=== PATIENT | male | born 2000 | race Caucasian/White ===

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

== ENCOUNTER 2021-08-04 23:21 | Emergency (ER) | payer OTHER ==
[2021-08-05] MEDS ORDERED: traMADol 50 MG TAB PO ONE (04:08)
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
[2021-08-05 06:20] VITALS: BP 126/73
== END 2021-08-05 06:53 | disposition home or self-care (01) ==
LOC: ED 23:21
DX: M54.2 Cervicalgia (principal); M54.50 Low back pain, unspecified; V49.9XXA Car occupant (driver) (passenger) injured in unspecified traffic accident, initial encounter; Y93.89 Activity, other specified; Y92.89 Other specified places as the place of occurrence of the external cause; Y99.8 Other external cause status
CPT/HCPCS: 72040; 72100; 99283

== ENCOUNTER 2021-08-25 08:06 | Emergency (ER) | payer SELFPAY ==
[2021-08-25 08:20] VITALS: BP 117/45
[2021-08-25 10:15] LABS: Basophils % (Auto) 0.4 % (0.0-1.8); Eosinophils # (Auto) 0.1 K/mm3 (0.0-0.4); Eosinophils % (Auto) 1.2 % (0.0-4.3); Hematocrit 46.2 % (35.5-45.6); Hemoglobin 15.5 gm/dl (11.8-15.2); Lymphocytes # (Auto) 2.8 K/mm3 (1.2-5.4); Lymphocytes % (Auto) 32.5 % (13.4-35.0); Mean Corpuscular HGB Conc 34 % (32-34); Mean Corpuscular Volume 88 fl (84-94); Monocytes % (Auto) 11.3 % (0.0-7.3); Platelet Count 319 K/mm3 (140-440); Red Blood Count 5.24 M/mm3 (3.65-5.03)
[2021-08-25 10:30] LABS: Alanine Aminotransferase 38 units/L (7-56); Albumin 5.2 g/dL (3.9-5); BUN/Creatinine Ratio 23; Blood Urea Nitrogen 18 mg/dL (9-20); Hemolysis Index 9
== END 2021-08-25 13:52 | disposition left against medical advice (07) ==
LOC: ED 08:06
DX: R56.9 Unspecified convulsions (principal); Z53.21 Procedure and treatment not carried out due to patient leaving prior to being seen by health care provider
CPT/HCPCS: 36415; 80053; 80320; 82550; 85025; G0480